=== PATIENT | female | born 1950 | race Caucasian/White ===

== ENCOUNTER 2020-08-24 12:22 | Outpatient (CLI) | payer MEDICARE, OTHER | END 2020-08-24 12:23 | disposition home or self-care (01) | LOC: CSHCT 12:22 | PROVIDERS: ATTEND Physician Assistant Medical | DX: R13.19 Other dysphagia (principal); E04.2 Nontoxic multinodular goiter | CPT/HCPCS: 70491; 82565 ==

== ENCOUNTER 2020-08-30 13:52 | Outpatient (CLI) | payer MEDICARE, OTHER | END 2020-08-30 13:53 | disposition home or self-care (01) | LOC: CSHULT 13:52 | PROVIDERS: ATTEND Physician Assistant Medical | DX: E04.1 Nontoxic single thyroid nodule (principal) | CPT/HCPCS: 76536 ==

== ENCOUNTER 2020-09-27 13:02 | Outpatient (CLI) | payer MEDICARE, OTHER ==
[2020-09-28 11:37] LABS: SARS-CoV-2 PCR by NAA Not Detected (NotDetected)
== END 2020-09-27 13:03 | disposition home or self-care (01) ==
LOC: CSHLAB 13:02
PROVIDERS: ATTEND Otolaryngology Otolaryngic Allergy
DX: Z20.822 Contact with and (suspected) exposure to COVID-19 (principal); E04.1 Nontoxic single thyroid nodule
CPT/HCPCS: 87635; U0003; U0005

== ENCOUNTER → 2020-10-01 | Day surgery (SDC) | payer MEDICARE, OTHER ==
[~2020-10-01] MED LIST: Chloroprocaine 3% PF 20 ML VIAL ONE; Sodium Bicarbonate 2.5 MEQ/5 ML VIAL ONE; diphenhydrAMINE 25 MG CAP ONE
[2020-10-01 08:32] VITALS: BMI 31.8
== END ==
LOC: CSHULT 08:03
PROVIDERS: ATTEND Otolaryngology Otolaryngic Allergy
DX: E04.1 Nontoxic single thyroid nodule (principal)
CPT/HCPCS: 10005; 88173; 88305; J2400; Q0163

== ENCOUNTER 2021-04-16 07:54 | Day surgery (SDC) | payer MEDICARE, OTHER ==
[2021-04-16 08:31] VITALS: BP 148/67
[2021-04-16] MEDS ORDERED: Lidocaine 1% PF 5 ML VIAL ONE (08:44)
[2021-04-16] MEDS ORDERED: Sodium Bicarbonate 2.5 MEQ/5 ML VIAL ONE (08:44)
== END 2021-04-16 09:20 | disposition home or self-care (01) ==
LOC: CSHULT 07:54
PROVIDERS: ATTEND Otolaryngology Otolaryngic Allergy
PROC: 0WB63ZX Excision of Neck, Percutaneous Approach, Diagnostic (ICD-10-PCS; principal; 2021-04-16)
DX: E04.1 Nontoxic single thyroid nodule (principal); Z79.899 Other long term (current) drug therapy; F32.9 Major depressive disorder, single episode, unspecified
CPT/HCPCS: 10005

== ENCOUNTER 2021-09-13 14:50 | Outpatient (CLI) | payer MEDICARE, OTHER | END 2021-09-13 14:51 | disposition home or self-care (01) | LOC: CSHMAMMO 14:50 | PROVIDERS: ATTEND Family Medicine | DX: Z13.820 Encounter for screening for osteoporosis (principal); Z78.0 Asymptomatic menopausal state; M81.0 Age-related osteoporosis without current pathological fracture | CPT/HCPCS: 77080 ==

== ENCOUNTER 2021-11-07 14:48 | Outpatient (CLI) | payer MEDICARE, OTHER | END 2021-11-07 14:49 | disposition home or self-care (01) | LOC: CSHULT 14:48 | PROVIDERS: ATTEND Otolaryngology Otolaryngic Allergy | DX: E21.3 Hyperparathyroidism, unspecified (principal); E04.2 Nontoxic multinodular goiter | CPT/HCPCS: 76536 ==

== ENCOUNTER 2022-06-12 09:09 | Outpatient (CLI) | payer MEDICARE, OTHER | END 2022-06-12 09:10 | disposition home or self-care (01) | LOC: CSHULT 09:09 | PROVIDERS: ATTEND Otolaryngology Otolaryngic Allergy | DX: E04.1 Nontoxic single thyroid nodule (principal); E04.2 Nontoxic multinodular goiter | CPT/HCPCS: 76536 ==

== ENCOUNTER 2023-04-12 12:37 | Emergency (ER) | payer MEDICARE, OTHER ==
[~2023-04-12 12:37] MED LIST changes: -Chloroprocaine 3% PF 20 ML VIAL ONE; +Iopamidol 300 61% 100 ML VIAL FS ONE; -Sodium Bicarbonate 2.5 MEQ/5 ML VIAL ONE; -diphenhydrAMINE 25 MG CAP ONE
[2023-04-12] MEDS ORDERED: Ondansetron PF 4 MG/2 ML Vial ONE ×2 (13:22→17:12)
[2023-04-12 13:39] LABS: Hematocrit 30.2 % (34.9-44.5); Hemoglobin 10.7 g/dL (12.0-15.5); Mean Corpuscular HGB CONC 35.4 g/dL (32.0-36.0); Mean Corpuscular Hemoglobin 30.8 pg (27.0-33.0); Mean Platelet Volume 9.4 fl (7.4-10.4); Platelet Count 184 10x3/uL (150-450); RBC Distribution Width 14.7 % (11.5-14.5); Red Blood Cell (RBC) Count 3.47 10x6/uL (3.90-5.03); White Blood Cell (WBC) Count 0.7 10x3/uL (3.5-10.5)
[2023-04-12 13:43] LABS: INR-International Normal Ratio 1.5; PTT 21.9 sec (22.0-33.0); Prothrombin Time 15.8 sec (9.5-12.1)
[2023-04-12 13:47] LABS: ALT (SGPT) 11 U/L (8-55); AST (SGOT) 16 U/L (5-34); Albumin 3.3 g/dL (3.4-4.8); Alkaline Phosphatase 49 U/L (40-110); Anion Gap 13 mmol/L (10-20); BUN (Urea Nitrogen) 12 mg/dL (9.8-20.1); Bilirubin, Total 2.2 mg/dL (0.2-1.2); Calc. Creatinine Clearance 0 mL/min (70-130); Calcium 8.1 mg/dL (7.8-10.44); Carbon Dioxide 19 mmol/L (23-31); Chloride 101 mmol/L (98-107); Estimated GFR 86; Globulin 2.1 g/dL (2.4-3.5); Glucose 127 mg/dL (83-110); Magnesium 1.6 mg/dL (1.6-2.6); Potassium 3.3 mmol/L (3.5-5.1); Protein, Total 5.4 g/dL (5.8-8.1); Sodium 130 mmol/L (136-145)
[2023-04-12 13:50] LABS: Troponin I Less than 0.010 ng/mL (< 0.028)
[2023-04-12 14:01] LABS: Lipase 4 U/L (8-78)
[2023-04-12] MEDS ORDERED: Potassium Chloride 20 MEQ/100 ML PREMIX BAG ONE (14:23)
[2023-04-12 14:29] LABS: Band 18 % (5-11); Monocytes 18 % (0-10); Reactive Lymphocytes 6 % (0-10)
[2023-04-12 14:31] LABS: Lymphocytes 35 % (21-51); Metamyelocyte 1 % (0-0); Neutrophil 21 % (42-75)
[2023-04-12 14:33] LABS: Anisocytosis SLIGHT = 6-15 cells (100X) (0-5/hpf); Large Platelets SLIGHT (None Seen); Ovalocytes SLIGHT = 2-5 cells (100X) (0-1/hpf); Platelet Adequacy Comment Appears Adequate
[2023-04-12 14:38] LABS: MDiff Complete? YES
[2023-04-12] MEDS ORDERED: metroNIDAZOLE 500 MG/100 ML BAG ONE (16:37)
[2023-04-12] MEDS ORDERED: LevoFLOXacin 750 mg/D5W 150 ml Premix Bag ONE (16:37)
[2023-04-12] MEDS ORDERED: Acetaminophen 325 MG TAB ONE (18:39)
== END 2023-04-12 19:49 | disposition short-term general hospital (02) ==
LOC: CSHERS 12:37
DX: K52.9 Noninfective gastroenteritis and colitis, unspecified (principal); D70.9 Neutropenia, unspecified; C18.9 Malignant neoplasm of colon, unspecified
CPT/HCPCS: 36415; 71045; 74177; 80053; 83605; 83690; 83735; 84484; 85025; 85610; 85730; 87040; 93005; J1956; J2405; J3480

== ENCOUNTER 2023-11-05 15:25 | Outpatient (CLI) | payer MEDICARE, OTHER | END 2023-11-05 15:26 | disposition home or self-care (01) | LOC: CSHULT 15:25 | PROVIDERS: ATTEND Family Medicine | DX: R31.9 Hematuria, unspecified (principal) | CPT/HCPCS: 76770 ==

== ENCOUNTER 2025-02-10 10:32 | Outpatient (CLI) | payer MEDICARE, OTHER | END 2025-02-10 10:33 | disposition home or self-care (01) | LOC: CSHCT 10:32 | PROVIDERS: ATTEND Family Medicine | DX: E87.1 Hypo-osmolality and hyponatremia (principal) | CPT/HCPCS: 71250 ==

== ENCOUNTER 2025-03-13 12:29 | Outpatient (CLI) | payer MEDICARE, OTHER | END 2025-03-13 12:30 | disposition home or self-care (01) | LOC: CSHMRI 12:29 | PROVIDERS: ATTEND Specialist | DX: M54.16 Radiculopathy, lumbar region (principal); M48.061 Spinal stenosis, lumbar region without neurogenic claudication; M48.07 Spinal stenosis, lumbosacral region | CPT/HCPCS: 72148 ==